=== PATIENT | female | born 1995 | race Caucasian/White ===

== ENCOUNTER 2017-09-16 16:27 | Emergency (ER) | payer BC, SELFPAY ==
[2017-09-16 18:42] VITALS: BP 117/70; PULSE 72; RESP 18; TEMP 36.6; O2SAT 100; BMI 23.0
--- NOTE | 2017-09-16 19:19 | HMH.EDUTC ---
[facility] [place] Imp[place]: Sp[place] of hand, thumb, left Qualifiers: Encounter type: initial encounter Sprain of finger site: unspecified site Qualified Code(s): S63.602A - Unspecified sprain of left thumb, initial encounter Disposition: Home, Self-Care Condition on Discharge: Good Instructions: DI for Ulnar Collateral Ligament Sprain of Thumb Additional Instructions: Rest Ice Elevate Ibuprofen as needed Follow up with ortho. I understand you prefer to stay close to home. They may have to refer you to a hand specialist in [place]. Referrals: Aleksandr Flores MD [Staff Physician] - (You can start here if you want to stay local. Call tomorrow. report injury to left thumb. neg xray in [facility]. Dx sprain and told to follow up. ) Time of Disposition: 20:39 Medical Decision Making Vital Signs: 09/16/17 18:42 Temperature 97.9 F Temperature Source Temporal Artery Scan Pulse Rate [Brachial] 72 Respiratory Rate 18 Blood Pressure [Right Arm] 117/70 Blood Pressure Mean [Right Arm] 85 Blood Pressure Source [Right Arm] Automatic Cuff Blood Pressure Position [Right Arm] Sitting 02 Sat by Pulse Oximetry 100 Oxygen Delivery Method Room Air - Radiology Data #1 Image(s): Hand (left) Image Reviewed: Yes I reviewed the patient's radiology image, Yes I have reviewed radiologist's interpretation Preliminary Findings: Normal/NAD - Hugh Inquiry Pt receiving controlled substance: No [facility] [place] - General Stated complaint: pain left hand,spot on face Time Seen by Provider: 09/16/17 19:19 Mode of Arrival: Ambulatory Source of Information: Patient Limitations: No Limitations Description of Symptoms (Recalled from Triage Doc. by RN): HURT LEFT HAND WRESTLING AROUND NEW YEARS LEEANN HEENT Symptoms (Recalled from RN notes): No Resp Symptoms (Recalled from RN notes): No Skin Symptoms (Recalled from RN notes): No MS Symptoms (Recalled from RN notes): No Functional Status (Recalled from RN notes): NA - History of Present Illness Provider Complaint: c/o pain primarily in base of left thumb since trying to wrestle out of police handcuffs on New years. Pain improved since onset but no change in last week or so . Worse with certian movements . Denies N/T. No limited ROM. Hasn't taken or tried anything for symptoms. Needing a work excuse. - Related Data Allergies Allergy/AdvReac Type Severity Reaction Status Date / Time No Known Allergies Allergy Unverified 08/18/17 14:56 - Worker's Comp Is this a Worker's Comp case?: No [facility] History I have reviewed the patient's past medical history: Yes - *Social History Smoking Status: Current every day smoker Tobacco Type: cigarettes Alcohol Intake: current Alcohol Intake Frequency:: a few times a week - Psychiatric History Expresses thoughts of harming self/others: None Suicide Plan Description: No Plan ROS Obtained: Yes Systems reviewed as appropriate & no additional complaints - Musculoskeletal Musculoskeletal: Reports as per HPI, Denies deformity, Denies joint stiffness, Denies joint swelling, Denies muscle weakness - Integumentary/Breasts Skin/Breast: Denies change in skin color - Neurologic Neurologic: Reports as per HPI Physical Exam - General General appearance: alert, in no apparent distress - Respiratory Respiratory exam: Absent: respiratory distress - Cardiovascular Cardiovascular exam: Present: regular rate - Expanded Upper Extremity Exam Left Elbow exam: Present: normal inspection, full ROM. Absent: tenderness Forearm/Wrist exam: Present: normal inspection, full ROM. Absent: tenderness Hand exam: Present: normal inspection, full ROM, tenderness (proximal phalanx thumb, negative snuffbox). Absent: swelling Neuromotor exam: Normal: thumb opposition, thumb adduction, fingers 2-5 abduction Vascular exam: Normal: capillary refill (brisk), radial pulse (2+) Comment: no motor or sensory deficit - Neurological Exam Neurological exam:
--- NOTE | 2017-09-16 19:34 | XR_ITS ---
XR hand LT min 3V HISTORY: Pain ITS.REASON: thumb pain trying to wrestle out of cuffs 08/30 ORDERING PHYSICIAN: Bill Duffy PATIENT AGE: 22 years COMPARISON: None FINDINGS: No fracture or dislocation. No lytic or blastic change. There is normal mineralization.. The joint spaces are well-preserved. No significant degenerative/arthritic changes. No erosive changes evident.. IMPRESSION: Negative, no acute finding
== END 2017-09-16 20:47 | disposition home or self-care (01) ==
PROVIDERS: Emergency Provider Nurse Practitioner Family
DX: S63.602A Unspecified sprain of left thumb, initial encounter (principal); X50.1XXA Overexertion from prolonged static or awkward postures, initial encounter; Y93.72 Activity, wrestling; Y92.89 Other specified places as the place of occurrence of the external cause; F17.210 Nicotine dependence, cigarettes, uncomplicated
CPT/HCPCS: 73130; 99202; 99282

== ENCOUNTER 2024-02-15 18:10 | Emergency (ER) | payer BC, SELFPAY ==
[2024-02-15 18:40] VITALS: BP 110/76; PULSE 91; RESP 20; TEMP 37.1; O2SAT 100; BMI 24.1
[2024-02-15 19:00] LABS: Apearance,Urine Clear (Clear); Bilirubin,Urine Negative (Negative); Blood, Urine Negative (Negative); Color,Urine Yellow (Yellow); Glucose,Urine (UA) Negative (Negative); Ketones,Urine Negative (Negative); PH,Urine 5.5 (5.0-8.5); Protein,Urine Negative (Negative); UTC Leukocyte Esterase,Urine Negative (Negative); UTC Nitrate,Urine Negative (Negative); UTC Pregnancy Test, Urine Negative (Negative); Urobilinogen,Urine 0.2 EU/dl (0.2)
[2024-02-15 19:01] LABS: UTC Strep Screen (Rapid) Negative (Negative)
--- NOTE | 2024-02-15 19:05 | EXP.UTC ---
Discharge Plan Disposition Patient Disposition: Home, Self-Care Condition: Good Prescriptions Prescriptions: New [id number] [Bromfed DM] 2-30-10 mg/5 mL syrup 10 ml PO Q6H PRN (Reason: cold symptoms) Qty: 118 0RF Referrals Follow up/Referrals: Provider,Referral, [Primary Care Provider] - See instructions Activity Restrictions/Add. Instructions Additional Instructions/Restrictions: Follow up with PCP if symptoms persist or worsen. Clinical Impressions Clinical Impression: Acute upper respiratory infection Stand Alone Forms Stand Alone Forms: Work/School Release Instructions Patient Instructions: DI for Viral Upper Respiratory Infection -- Adult Discharge ED Provider: Jud Eden [facility] [place] H[place] General Stated complaint: nausea, weak, sore throat,aditya Mode of Arrival: Ambulatory Source of Information: Patient Limitations: No Limitations Time Seen by Provider: 02/15/24 19:05 Description of Symptoms (Recalled from Triage Doc. by RN): PATIENT C/O CONGESTION, FATIGUE, SORE THROAT, AND BODY ACHES THAT STARTED THIS MORNING HEENT Symptoms (Recalled from RN notes): Yes Resp Symptoms (Recalled from RN notes): No Skin Symptoms (Recalled from RN notes): No MS Symptoms (Recalled from RN notes): No Functional Status (Recalled from RN notes): WNL History of Present Illness Provider Complaint: Pt reports that she has had fatigue, runny nose, cough, sore throat, and body aches that started this morning. She reports some pelvic pain as well and states she has bleed a little everyday since her Nexplanon placement. 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 Related Data Previous Rx's Medication Instructions Recorded eugfmztwkjywkbf-szjqynjwqqxuhts-NX 10 ml PO Q6H PRN cold symptoms 02/15/24 2 mg-30 mg-10 mg/5 mL oral syrup #118 mL (Bromfed DM) Allergies Allergy/AdvReac Type Severity Reaction Status Date / Time No Known Allergies Allergy Verified 02/15/24 18:58 Worker's Comp Is this a Worker's Comp case?: No [facility] Disclaimer: The information contained in this section may have been updated after the patient was seen, as this information can be updated by other users. Medical History (Updated 02/15/24 @ 19:16 by Jud Eden APRN) No significant past medical history Social History Smoking Status: Current every day smoker tobacco type: cigarettes alcohol intake: current alcohol intake frequency: a few times a week current occupational status: employed Travel in the last 8 weeks: None ROS Obtained: Yes All systems reviewed & no additional complaints except as documented Constitutional Constitutional: Reports system reviewed and no additional complaints, except as documented, Reports fatigue and Reports malaise Eyes Eyes: Reports system reviewed and no additional complaints, except as documented ENT Ears, Nose, Mouth, and Throat: Reports system reviewed and no additional complaints, except as documented, Reports nasal discharge, Reports post nasal drip and Reports sore throat Cardiovascular Cardiovascular: Reports system reviewed and no additional complaints, except as documented Respiratory Respiratory: Reports system reviewed and no additional complaints, except as documented and Reports non-productive cough Gastrointestinal Gastrointestingal: Reports system reviewed and no additional complaints, except as documented and cramping Genitourinary Female Genitourinary: Reports system reviewed and no additional complaints, except as documented, Reports metrorrhagia and Reports pelvic pain Musculoskeletal Musculoskeletal: Reports system reviewed and no additional complaints, except as documented Integumentary/Breasts Skin/Breast: Reports system reviewed and no additional complaints, except as documented Neurologic Neurologic: Reports system reviewed and no additional complaints, except as documented Endocrine Endocrine: Reports system reviewed and no additional complaints, except as documented and Reports fatigue Hematologic/Lymphatic Henatologic/Lymphatic: Reports system reviewed and no additional complaints, except as documented Allergic/Immunologic Allergic/Immunologic: Reports system reviewed and no additional complaints, except as documented Physical Exam General General appearance: alert Comment: ill appearing Head Head exam: atraumatic and normocephalic Eye Eye exam: Present normal appearance ENT ENT exam: Present mucous membranes moist Expanded ENT Exam External ear exam: Present normal external inspection Nasal speculum exam: Bilateral: other (clear drainage) Mouth exam: Present normal external inspection Teeth exam: Present normal inspection Throat exam: Present normal inspection Comment: post nasal drainage Neck Neck exam: Present normal inspection; Absent lymphadenopathy Chest Chest inspection: Present normal inspection and symmetric chest wall rise Respiratory Respiratory exam: Present normal lung sounds bilaterally Cardiovascular Cardiovascular exam: Present regular rate, normal rhythm and normal heart sounds Abdominal Exam Abdominal exam: Present soft and normal bowel sounds Extremities Exam Extremities exam: Present normal inspection Back Exam Back exam: Present normal inspection Neurological Exam Neurological exam: Present alert and oriented X3 Psychiatric Psychiatric exam: Present normal affect and normal mood Skin Skin exam: Present warm, dry and intact Lymphatic Lymphatic Findings: no adenopathy Medical Decision Making Hugh Inquiry Pt receiving controlled substance: No Hugh was queried for this patient: No Vital Signs: 02/15/24 18:40 Temperature 98.7 F Temperature Source Oral Pulse Rate [Left Brachial] 91 H Respiratory Rate 20 Blood Pressure [Left Arm] 110/76 Blood Pressure Mean [Left Arm] 87 Blood Pressure Source [Left Arm] Automatic Cuff Blood Pressure Position [Left Arm] Sitting 02 Sat by Pulse Oximetry 100 Oxygen Delivery Method Room Air Lab Data Lab results reviewed: Yes I reviewed the patient's lab results. Lab Results 02/15/24 18:58: Urine Color Yellow, Urine Appearance Clear, Urine pH 5.5, Ur Specific [place] 1.020, Urine Protein Negative, Urine Glucose (UA) Negative, Urine Ketones Negative, Urine Blood Negative, Urine Nitrate Negative, Urine Bilirubin Negative, Urine Urobilinogen 0.2, Ur Leukocyte Esterase Negative, Tst Clinic Negative, Strep Scn Rapid Clinic Negative Orders (Tests/Meds): ORDERS Category Date Time Status Strep Screen Confirmation Stat Micro 02/15/24 18:58 Received
[2024-02-15 19:18] VITALS: BP 110/76; PULSE 91; RESP 20; TEMP 37.1; O2SAT 100
== END 2024-02-15 19:22 | disposition home or self-care (01) ==
PROVIDERS: Emergency Provider Nurse Practitioner Family
DX: R05.9 Cough, unspecified (principal); R07.0 Pain in throat; J06.9 Acute upper respiratory infection, unspecified; R53.83 Other fatigue; F17.210 Nicotine dependence, cigarettes, uncomplicated
CPT/HCPCS: 81003; 81025; 87880; 99204; 99212; G0463